=== PATIENT | male | born 1995 | race Two or more races ===

== ENCOUNTER → 2024-09-10 | Outpatient (CLI) | payer MEDICAID, SELFPAY ==
--- NOTE | 2024-09-10 14:21 | XR_ITS ---
Examination: Hand, right 3 views Technique: Hand AP, oblique, lateral 3 views Date and time of exam: September 10, 2024 at 1435 hours INDICATIONS: Injury to the hand one and a half years ago with persistent pain FINDINGS: Old healed fracture fifth metacarpal No acute fracture No cortical bone destruction No opaque foreign body IMPRESSION: Healed fracture fifth metacarpal No acute fracture
== END | disposition home or self-care (01) ==
PROVIDERS: PCP Physician Assistant Medical; Referring Provider Physician Assistant Medical; Visit Provider Physician Assistant Medical
DX: R22.30 Localized swelling, mass and lump, unspecified upper limb (principal); Z87.81 Personal history of (healed) traumatic fracture; S69.91XS Unspecified injury of right wrist, hand and finger(s), sequela; X58.XXXS Exposure to other specified factors, sequela
CPT/HCPCS: 73130